=== PATIENT | female | born 1950 | race Caucasian/White ===

== ENCOUNTER 2019-05-22 08:56 | Inpatient (IN) | payer OTHER ==
[~2019-05-22] VITALS: Ht 144.8 cm; Wt 59.9 kg
[2019-05-22] MEDS ORDERED: ONDANSETRON 4 MG/2 ML VIAL IM ONE (09:15)
[2019-05-22] MEDS ORDERED: MORPHINE SULFATE 4 MG/1 ML DISP.SYRIN IM ONE (09:15)
[2019-05-22] MEDS ORDERED: ONDANSETRON 4 MG/2 ML VIAL ONE (09:22)
[2019-05-22] MEDS ORDERED: MORPHINE SULFATE 4 MG/1 ML DISP.SYRIN ONE (09:22)
--- NOTE | 2019-05-22 09:23 | NUR ---
PT IS IN ROOM #2A. DR ROTH EVALUATED THE PT.
[2019-05-22 11:18] LABS: BASOPHILS # (AUTO) 0.1 K/uL (0.0-8.0); BASOPHILS % (AUTO) 0.8 % (0.0-2.0); EOSINOPHILS # (AUTO) 0.1 K/uL (0.0-0.7); EOSINOPHILS % (AUTO) 0.6 % (0.0-7.0); HEMATOCRIT 45.8 % (31.2-41.9); HEMOGLOBIN 15.3 g/dL (10.9-14.3); LYMPHOCYTES # (AUTO) 2.3 K/uL (20.0-40.0); LYMPHOCYTES % (AUTO) 19.7 % (20.5-51.5); MEAN CORPUSCULAR HEMOGLOBIN 29.4 uug (24.7-32.8); MEAN CORPUSCULAR HGB CONC 33 g/dL (32.3-35.6); MEAN CORPUSCULAR VOLUME 87.8 fL (75.5-95.3); MONOCYTES # (AUTO) 0.4 K/uL (2.0-10.0); MONOCYTES % (AUTO) 3.7 % (0.0-11.0); NEUTROPHILS # (AUTO) 8.7 K/uL (1.8-8.9); NEUTROPHILS % (AUTO) 75.2 % (38.5-71.5); PLATELET COUNT (AUTO) 239 K/uL (179-408); RED BLOOD CELL COUNT(AUTO) 5.21 MIL/uL (3.63-4.92); WHITE BLOOD COUNT (AUTO) 11.5 K/uL (3.8-11.8)
[2019-05-22 11:27] LABS: CREATININE 0.7 mg/dL (0.6-1.3); POTASSIUM 3.8 mmol/L (3.5-5.1)
[2019-05-22] MEDS ORDERED: IV NORMAL SALINE 1000 ML BAG IV ONE (11:30)
[2019-05-22 11:33] LABS: BILIRUBIN,DIRECT 0.2 mg/dL (0.0-0.2); BILIRUBIN,TOTAL 1.3 mg/dL (0.2-1.0); TOTAL PROTEIN, SERUM 8.6 g/dL (6.4-8.2)
[2019-05-22 12:05] LABS: *BILIRUBIN,URIN NEGATIVE (NEGATIVE); *BLOOD, URINE NEGATIVE (NEGATIVE); *CLARITY,URINE CLEAR (CLEAR); *COLOR,URINE YELLOW (YELLOW); *KETONES,URINE NEGATIVE (NEGATIVE); *UROBILINOGEN,URINE 0.2 E.U./dl (NORMAL); LEUKOCYTE ESTERASE ,URINE NEGATIVE (NEGATIVE); NITRITE, URINE NEGATIVE (NEGATIVE); UGLUCOSE NEGATIVE (NEGATIVE)
[2019-05-22] MEDS ORDERED: HYDROCODONE/APAP 5-325MG TABLET PO PRN (12:30)
[2019-05-22] MEDS ORDERED: ONDANSETRON 4 MG/2 ML VIAL IV PRN (12:30)
[2019-05-22] MEDS ORDERED: Z GUARD REMEDY PASTE 57 GM TUBE TOP PRN (12:30)
[2019-05-22] MEDS ORDERED: HYDROCODONE/APAP 10-325 MG TABLET PO PRN (12:30)
[2019-05-22] MEDS ORDERED: MAGNESIUM HYDROXIDE 30 ML LIQUID UDC PO PRN (12:30)
--- NOTE | 2019-05-22 12:32 | NUR ---
report was given to rn m/s, pt was transfered to room #304.
--- NOTE | 2019-05-22 13:10 | NUR ---
Patient was Admitted with Diagnosis of Multiple Vertebral Compression Fracture under Dr. Riddle, receive patient via [place]. Patient is Awake, alert and verbally responsive. No signs of Distress noted. No SOB. Complain of Pain on Lower back with positioning. Patient noted with IV on left AC gauge 20, No signs of Infiltration noted. Head to Toe Body assessment was done. Skin is Intact. Dr. Riddle made aware. Kept the call light within easy reach. Will continue to monitor.
--- NOTE | 2019-05-22 13:22 | NUR ---
TEXTED DR. YEAGER FOR MRI APPROVAL.
[2019-05-22] MEDS: MORPHINE SULFATE 2 MG/1 ML DISP.SYRIN IV PRN (13:45)
[2019-05-22 14:00] VITALS: BP 114/55
--- NOTE | 2019-05-22 18:33 | NUR ---
Patient in bed, awake and verbally responsive. No signs of Distress noted. No SOB. Pain medication given as ordered, with relief after 30 minutes. All needs attended and met. kept the bed in lowest position. kept the call light within easy reach. Will endorse to Oncoming Nurse.
[2019-05-22 20:00] VITALS: BP 106/59
--- NOTE | 2019-05-22 20:00 | NUR ---
Beginning of Shift Bedside report received from AM NURSE. Received patient in bed. Awake, and fully responsive. Physical assessment done, and vital signs taken. Will document appropriately. Patient complains of mild headache 3/10, throbbing/aching. Offered Tylenol, and accepted, will administer. Requested for bedpan, noted with 300cc of urine with no foul odor. Perineal care assistance provided. Requested for oral care as well, provided patient with toothbrush and toothpaste, able to perform oral care by herself in bed. Upper dentures on patient. Family at bedside, verbalizes satisfaction with patient care. Fall precautions maintained. Bed Alarm on. Patient is aware of limitations. Teaching reinforced for fall precautions and pain management. Will continue med-surg monitoring.
[2019-05-22] MEDS ORDERED: ENOXAPARIN SODIUM 40 MG/0.4 ML DISP.SYRIN SQ SCH (21:00)
[2019-05-22] MEDS: ACETAMINOPHEN 325 MG TABLET PO PRN (21:06)
[2019-05-23 05:00] VITALS: BP 100/39
[2019-05-23] MEDS: ACETAMINOPHEN 325 MG TABLET PO PRN (06:17)
--- NOTE | 2019-05-23 06:49 | NUR ---
End of Shift Patient able to sleep through the night. No signs of pain noted. Complained of 3/10 headache this morning, accompanied by lower diastolic blood pressure. 101/39. Tylenol 650 mg given and blood pressure rechecked at this time: 101/50. Good perineal care provided after urination via bedpan. Partial linen change done. Will endorse accordingly.
[2019-05-23 06:57] LABS: CREATININE 0.6 mg/dL (0.6-1.3); MAGNESIUM 2.1 mg/dL (1.8-2.4); PHOSPHOROUS 3.8 mg/dL (2.5-4.9); POTASSIUM 3.8 mmol/L (3.5-5.1)
[2019-05-23 07:03] LABS: MONOCYTES # (AUTO) 0.6 K/uL (2.0-10.0); PLATELET COUNT (AUTO) 203 K/uL (179-408)
[2019-05-23 07:05] LABS: THYROID STIMULATING HORMONE 4.508 mIU/mL (0.358-3.740)
--- NOTE | 2019-05-23 07:05 | NUR ---
Received patient in Bed, awake, alert and verbally responsive. No signs of Distress noted. No SOB. No complain of Pain at this time. Kept the bed in lowest position. Kept the call light within easy reach. Will continue to monitor.
[2019-05-23 07:22] LABS: BASOPHILS % (AUTO) 0.6 % (0.0-2.0); EOSINOPHILS # (AUTO) 0.1 K/uL (0.0-0.7); EOSINOPHILS % (AUTO) 1.9 % (0.0-7.0); LYMPHOCYTES # (AUTO) 3.3 K/uL (20.0-40.0); LYMPHOCYTES % (AUTO) 42.7 % (20.5-51.5); MEAN CORPUSCULAR HEMOGLOBIN 30.2 uug (24.7-32.8); MEAN CORPUSCULAR HGB CONC 34 g/dL (32.3-35.6); MEAN CORPUSCULAR VOLUME 88.7 fL (75.5-95.3); MONOCYTES % (AUTO) 7.6 % (0.0-11.0); NEUTROPHILS # (AUTO) 3.6 K/uL (1.8-8.9); NEUTROPHILS % (AUTO) 47.2 % (38.5-71.5); RED BLOOD CELL COUNT(AUTO) 4.45 MIL/uL (3.63-4.92)
[2019-05-23 07:24] LABS: HEMATOCRIT 39.4 % (31.2-41.9); HEMOGLOBIN 13.4 g/dL (10.9-14.3); WHITE BLOOD COUNT (AUTO) 7.7 K/uL (3.8-11.8)
[2019-05-23 11:28] VITALS: BP 113/65
[2019-05-23 15:43] VITALS: BP 111/57
[2019-05-23] MEDS: MORPHINE SULFATE 2 MG/1 ML DISP.SYRIN IV PRN (16:17)
--- NOTE | 2019-05-23 19:08 | NUR ---
Patient is awake and verbally responsive. No signs of distress noted. No SOB. pain medication given as ordered. Patient with Order to Discharge to Home today. Discharge Instruction explained to patient and verbalized Understanding. All belongings was sent home and signed, Patient with Discharge Order of Commode, FWW and TLSO Spinal Brace was sent with patient. Removed IV site and wrist band. Patient was Picked up by Friend and went home via Private car in stable condition. .
== END 2019-05-23 19:30 | disposition home or self-care (01) | DRG 544 ==
LOC: ER 08:56 → MEDSURG3 12:40
DX: M80.08XA Age-related osteoporosis with current pathological fracture, vertebra(e), initial encounter for fracture (principal); M48.07 Spinal stenosis, lumbosacral region; M46.04 Spinal enthesopathy, thoracic region; M47.816 Spondylosis without myelopathy or radiculopathy, lumbar region; M41.9 Scoliosis, unspecified; M48.56XA Collapsed vertebra, not elsewhere classified, lumbar region, initial encounter for fracture; W01.0XXA Fall on same level from slipping, tripping and stumbling without subsequent striking against object, initial encounter; Y93.E5 Activity, floor mopping and cleaning; Y92.099 Unspecified place in other non-institutional residence as the place of occurrence of the external cause; Y99.0 Civilian activity done for income or pay; K76.0 Fatty (change of) liver, not elsewhere classified; R94.6 Abnormal results of thyroid function studies
CPT/HCPCS: 36415; 71045; 72072; 72100; 72131; 83735; 84100; 84443; 85025; 85730; 93005; A4663; G0378; J1650; J2270; J2405; J7030